=== PATIENT | female | born 1970 | race American Indian/Alaskan Native ===

== ENCOUNTER 2016-09-06 13:06 | Emergency (ER) | payer SELFPAY ==
[2016-09-06 16:39] VITALS: BP 195/111
== END 2016-09-06 13:07 | disposition left against medical advice (07) ==
LOC: ED 13:06
DX: R42 Dizziness and giddiness (principal); R53.1 Weakness; Z53.21 Procedure and treatment not carried out due to patient leaving prior to being seen by health care provider

== ENCOUNTER 2016-12-20 19:29 | Emergency (ER) | payer BC ==
[2016-12-20 20:39] LABS: Basophils % (Auto) 0.3 % (0.0-1.8); Eosinophils % (Auto) 1.4 % (0.0-4.3); Mean Corpuscular HGB Conc 29 % (30-34); Platelet Count 480 K/mm3 (140-440); Red Blood Count 4.69 M/mm3 (3.65-5.03); White Blood Count 14.2 K/mm3 (4.5-11.0)
[2016-12-20 20:43] LABS: Anion Gap 16 mmol/L; BUN/Creatinine Ratio 23.33; Blood Urea Nitrogen 14 mg/dL (7-17); Calcium 9.3 mg/dL (8.4-10.2); Carbon Dioxide 26 mmol/L (22-30); Chloride 100.6 mmol/L (98-107); Creatine Kinase 50 units/L (30-135); Glucose 89 mg/dL (65-100); Potassium 3.7 mmol/L (3.6-5.0); Sodium 139 mmol/L (137-145)
[2016-12-20 20:47] LABS: INR 0.99 (0.87-1.13)
[2016-12-20 20:48] LABS: Partial Thromboplastin Time 28.7 Sec. (24.2-36.6)
[2016-12-20 20:56] LABS: Hematocrit 28.9 % (30.3-42.9); Hemoglobin 8.3 gm/dl (10.1-14.3); Mean Corpuscular Hemoglobin 18 pg (28-32); Mean Corpuscular Volume 62 fl (79-97); Red Cell Distribution Width 20.4 % (13.2-15.2)
[2016-12-21] MEDS ORDERED: NACL ONE (02:17)
--- NOTE | 2016-12-21 03:05 | Cat Scan Report ---
FINAL REPORT PROCEDURE: CT HEAD/BRAIN WO CON TECHNIQUE: Computerized tomography of the head was performed without contrast material. HISTORY: Headache COMPARISON: No prior studies are available for comparison. FINDINGS: Skull and scalp: Normal. Paranasal sinuses: Normal. Ventricles and subarachnoid spaces: Normal. Cerebrum: No evidence of hemorrhage, acute infarction or mass . Cerebellum and brainstem: No evidence of hemorrhage, acute infarction or mass. Vasculature: Normal. Comments: None. IMPRESSION: Normal Examination
--- NOTE | 2016-12-21 03:11 | Cat Scan Report ---
FINAL REPORT PROCEDURE: CT ANGIO CHEST TECHNIQUE: Computerized tomographic angiography of the chest was performed after the IV injection of iodinated nonionic contrast including image processing. The image data was postprocessed using 2-dimensional multiplanar reformatted (MPR) and 3-dimensional (MIP and/or volume rendered) techniques. HISTORY: SOB COMPARISON: No prior studies are available for comparison. FINDINGS: Heart and pericardium: Normal. Thoracic aorta: Normal. Pulmonary vasculature: Normal. Lymph nodes: No enlarged thoracic lymph nodes. Lungs: The lungs are clear. No infiltrate, effusion or pneumothorax. The central airway is patent.. Pleural space: No effusion, thickening, or pneumothorax. Musculoskeletal structures: No significant abnormality. Upper abdominal structures: No significant abnormality. IMPRESSION: There is no evidence of pulmonary arterial emboli. The lungs are clear without infiltrate, effusion or pneumothorax.
--- NOTE | 2016-12-21 03:18 | Emergency Department Report ---
HPI - General Chief Complaint: Extremity Problem,Nontraumatic Time Seen by Provider: 12/21/16 01:10 ED Past Medical Hx - Past Medical History Previous Medical History?: Yes Hx Hypertension: Yes - Surgical History Past Surgical History?: Yes Additional Surgical History: Tubal - Social History Smoking Status: Never Smoker Substance Use Type: None - Medications Home Medications: Home Medications Medication Instructions Recorded Confirmed Last Taken Type Sulfamethoxazole/Trimethoprim 1 each PO BID #14 tablet 01/19/15 Unknown Rx [Bactrim Ds] Diazepam Tab [Valium] 5 mg PO Q8HR PRN #10 tablet 03/09/16 Unknown Rx Ibuprofen [Motrin 800 MG tab] 800 mg PO TID PRN #14 tablet 03/09/16 Unknown Rx ED Review of Systems ROS: Stated complaint: SOB, LEFT LEG PAIN Other details as noted in HPI Physical Exam - Physical Exam Vital Signs: Vital Signs 12/20/16 12/21/16 19:50 01:40 Temperature 98.8 F Pulse Rate 70 64 Respiratory 14 20 Rate Blood Pressure 154/73 145/90 [Right] O2 Sat by Pulse 100 100 Oximetry ED Course Vital Signs 12/20/16 12/21/16 19:50 01:40 Temperature 98.8 F Pulse Rate 70 64 Respiratory 14 20 Rate Blood Pressure 154/73 145/90 [Right] O2 Sat by Pulse 100 100 Oximetry ED Medical Decision Making - Lab Data Result diagrams: 12/20/16 20:02 12/20/16 20:02 Critical care attestation.: If time is entered above; I have spent that time in minutes in the direct care of this critically ill patient, excluding procedure time. ED Disposition Condition: Stable Referrals: PRIMARY CARE [Primary Care Provider] - 3-5 Days
[2016-12-21] MEDS ORDERED: LOVENOX SUB-Q ONE (04:11)
--- NOTE | 2016-12-21 04:44 | Emergency Department Report ---
HPI - General Chief Complaint: Extremity Problem,Nontraumatic Time Seen by Provider: 12/21/16 01:10 - HPI HPI: This is a 46-year-old Afro[place] female who presents to the emergency department, sent in by referral by her primary care doctor Laurence Robbins, with multiple complaints. The main issue is that the patient has a few days of left- sided leg/thigh pain. 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 On top of this issue, the patient has been having a 10 day history of intermittent left-sided headache. She will wake up with it and it will go until early afternoon and then usually will resolve after the patient uses some Aleve. She also has some shortness of breath with exertion. She denies any chest pain, fever, vision change, slurred speech, back pain and she denies any skin color change or swelling. However the patient does have a history of anemia secondary to vaginal bleeding and fibroids and required a blood transfusion back in July. She is due to have a hysterectomy by Dr. Lg Mosher. The patient recently had some blood work by Dr. Robbins that showed a hemoglobin of 8 and some thrombocytosis of almost 600. ED Past Medical Hx - Past Medical History Previous Medical History?: Yes Hx Hypertension: Yes - Surgical History Past Surgical History?: Yes Additional Surgical History: Tubal - Social History Smoking Status: Never Smoker Substance Use Type: None - Medications Home Medications: Home Medications Medication Instructions Recorded Confirmed Last Taken Type Sulfamethoxazole/Trimethoprim 1 each PO BID #14 tablet 01/19/15 Unknown Rx [Bactrim Ds] Diazepam Tab [Valium] 5 mg PO Q8HR PRN #10 tablet 03/09/16 Unknown Rx Ibuprofen [Motrin 800 MG tab] 800 mg PO TID PRN #14 tablet 03/09/16 Unknown Rx ED Review of Systems ROS: Stated complaint: SOB, LEFT LEG PAIN Other details as noted in HPI Comment: All other systems reviewed and negative Constitutional: denies: chills, fever Eyes: denies: eye pain, eye discharge, vision change ENT: denies: ear pain, throat pain Respiratory: SOB with exertion. denies: wheezing Cardiovascular: denies: chest pain, edema Gastrointestinal: denies: abdominal pain, nausea, diarrhea Genitourinary: denies: urgency, dysuria, discharge Musculoskeletal: myalgia. denies: back pain Skin: denies: rash, pruritus Neurological: headache. denies: weakness, numbness, paresthesias Physical Exam - Physical Exam Vital Signs: Vital Signs 12/20/16 12/21/16 19:50 01:40 Temperature 98.8 F Pulse Rate 70 64 Respiratory 14 20 Rate Blood Pressure 154/73 145/90 [Right] O2 Sat by Pulse 100 100 Oximetry Physical Exam: GENERAL: The patient is well-developed well-nourished. HEENT: Normocephalic. Atraumatic. Extraocular motions are intact. Patient has moist mucous membranes. Pupils equal reactive to light bilaterally. No nystagmus. NECK: Supple. Trachea is midline. CHEST/LUNGS: Clear to auscultation. No tachypnea or accessory muscle use. There is no respiratory distress noted. HEART/CARDIOVASCULAR: Regular. There is no tachycardia. There is no gallop rub or murmur. ABDOMEN: Abdomen is soft, nontender. Patient has normal bowel sounds. There is no abdominal distention. SKIN: Skin is warm and dry. NEURO: The patient is awake, alert, and oriented. The patient is cooperative. The patient has no focal neurologic deficits. The patient has normal speech. MUSCULOSKELETAL: There is some tenderness to palpation to the left anterior mid thigh and to the left calf but there is no deformity. Cap refill less than 2 seconds. There is no limitation range of motion. There is no evidence of acute injury. ED Course Vital Signs 12/20/16 12/21/16 19:50 01:40 Temperature 98.8 F Pulse Rate 70 64 Respiratory 14 20 Rate Blood Pressure 154/73 145/90 [Right] O2 Sat by Pulse 100 100 Oximetry ED Medical Decision Making - Lab Data Result diagrams: 12/20/16 20:02 12/20/16 20:02 - EKG Data -: EKG Interpreted by Me EKG shows normal: sinus rhythm, axis, intervals, QRS complexes, ST-T waves Rate: normal - EKG Data When compared to previous EKG there are: previous EKG unavailable Interpretation: normal EKG - Radiology Data Radiology results: report reviewed, image reviewed interpreted by me: Chest x-ray did not show any acute process. Heart is normal shape and size. No effusions. No pneumothorax. No signs of pneumonia seen. CT angiography of the chest does not show any pulmonary embolism, aortic dissection or any acute process. CT of the head does not show any acute process including no hemorrhage, mass, shift, diffuse edema or skull fracture. - Medical Decision Making This is a 46-year-old female who presents to the emergency department and was sent in by her PCP to rule out a left lower extremity DVT and a pulmonary embolism. The patient also complains of a 10 day history of some intermittent left-sided headache and some shortness of breath with exertion. However the patient denies any current headache or shortness of breath and has never had any chest pain. She denies any skin color change or swelling to the left leg but does have some tenderness over the thigh and calf. The patient does have a mild leukocytosis but no signs of infection. She has some anemia with hemoglobin of the eights but this is consistent with recent blood draws from her PCP and she has the known history of fibroids and heavy vaginal bleeding and is due to have a hysterectomy. Finally the patient had a slightly elevated and equivocal d-dimer. Due to the patient's history of intermittent headaches, a CT of the head was done that does not show any bleed, shift, mass or any acute process. Due to the concern for PE, a CT angiography of the chest was done that does not show any PE or any acute process. We were unable to do a venous Doppler this evening, so the patient was given a single dose of Lovenox at a therapeutic level and has been set up to have a venous Doppler done later this afternoon. If positive she will be redirected back to the emergency department. If negative she will follow with her PCP. All the labs, imaging and plan discussed with the patient and she understands and agrees. - Differential Diagnosis muscle spasm, DVT, PE, cluster headache, tension headache Critical Care Time: No Critical care attestation.: If time is entered above; I have spent that time in minutes in the direct care of this critically ill patient, excluding procedure time. ED Disposition Clinical Impression: Left leg pain, Thrombocytosis, SOB (shortness of breath) on exertion Headache Qualifiers: Headache type: unspecified Headache chronicity pattern: episodic headache Intractability: not intractable Qualified Code(s): R51 - Headache Anemia Qualifiers: Anemia type: unspecified type Qualified Code(s): D64.9 - Anemia, unspecified Disposition: DISCHARGED TO HOME OR SELFCARE Is pt being admited?: No Condition: Stable Instructions: Acute Headache (ED), Dyspnea (ED), Arthralgia (ED), Anemia (ED) Additional Instructions: Please return to the hospital when contacted for your left lower extremity Doppler ultrasound to rule out a DVT. If positive, he will be redirected to the emergency department. If negative, he should follow-up with your primary care doctor in the next few days. Return to the ER with any worsening of her symptoms or any acute distress. Referrals: PRIMARY CAREMD [Primary Care Provider] - [facility] Time of Disposition: 04:44
[2016-12-21 05:28] VITALS: BP 138/76
--- NOTE | 2016-12-21 11:30 | XRay Report ---
CHEST TWO VIEWS: 12/20/16 19:29:00 CLINICAL: Shortness of breath. COMPARISON: None FINDINGS: Normal heart and pulmonary vasculature. The lungs are normally expanded and clear. The bones and soft tissues are normal. IMPRESSION: Normal chest.
== END 2016-12-21 05:29 | disposition home or self-care (01) ==
LOC: ED 19:29
DX: M79.605 Pain in left leg (principal); D64.9 Anemia, unspecified; D47.3 Essential (hemorrhagic) thrombocythemia; R06.02 Shortness of breath; R51 Headache; I10 Essential (primary) hypertension
CPT/HCPCS: 36415; 70450; 71020; 71275; 80048; 82550; 82553; 82805; 83735; 83880; 84484; 84703; 85025; 85379; 85610; 85730; 86140; 93005; 93010; 96372; 99285; J1650; Q9967

== ENCOUNTER 2016-12-21 14:32 | Outpatient (CLI) | payer BC ==
--- NOTE | 2016-12-24 10:15 | Vascular Lab Report ---
Left Lower Extremity Venous Duplex Study: Reason for Exam: Left leg pain. Comments on the Right: A limited duplex study was done of the proximal veins of the right lower extremity. All veins visualized are freely compressible without evidence of internal echogenicity. Flow is spontaneous and phasic throughout. No evidence of acute or chronic thrombus is seen in any of the vessels visualized. Comments on the Left: All veins visualized are freely compressible without evidence of internal echogenicity. Flow is spontaneous and phasic throughout. No evidence of acute or chronic thrombus is seen in any of the vessels visualized. Impression: No evidence of acute or chronic deep venous thrombosis in the left lower extremity.
== END 2016-12-21 14:33 | disposition home or self-care (01) ==
LOC: VAS 14:32
PROVIDERS: ATTEND Emergency Medicine
DX: M79.662 Pain in left lower leg (principal)

== ENCOUNTER 2019-04-24 14:14 | Emergency (ER) | payer SELFPAY ==
[2019-04-24] MEDS ORDERED: ASPIRIN PO ONE (14:20)
--- NOTE | 2019-04-24 14:33 | Event Note ---
ED Screening Note Date of service: 04/24/19 Time: 14:31 ED Screening Note: 48 y o female presents with left arm pain and numbness radiating to chest x yesterday worsened today This initial assessment/diagnostic orders/clinical plan/treatment(s) is/are subject to change based on patients health status, clinical progression and re- assessment by fellow clinical providers in the ED. Further treatment and workup at subsequent clinical providers discretion. Patient/guardian urged not to elope from the ED as their condition may be serious if not clinically assessed and managed. Initial orders include: cp protocol
[2019-04-24 14:35] VITALS: BP 217/89
[2019-04-24 14:56] LABS: Basophils # (Auto) 0.1 K/mm3 (0.0-0.1); Basophils % (Auto) 0.5 % (0.0-1.8); Eosinophils # (Auto) 0.2 K/mm3 (0.0-0.4); Eosinophils % (Auto) 1.3 % (0.0-4.3); Hematocrit 40.6 % (30.3-42.9); Hemoglobin 13.5 gm/dl (10.1-14.3); Lymphocytes # (Auto) 2.4 K/mm3 (1.2-5.4); Lymphocytes % (Auto) 18.1 % (13.4-35.0); Mean Corpuscular HGB Conc 33 % (30-34); Mean Corpuscular Volume 88 fl (79-97); Monocytes # (Auto) 0.7 K/mm3 (0.0-0.8); Monocytes % (Auto) 5.2 % (0.0-7.3); Platelet Count 360 K/mm3 (140-440); Red Blood Count 4.62 M/mm3 (3.65-5.03); Red Cell Distribution Width 13.1 % (13.2-15.2)
[2019-04-24 15:18] LABS: BUN/Creatinine Ratio 14; Blood Urea Nitrogen 10 mg/dL (7-17); Hemolysis Index 14
--- NOTE | 2019-04-24 16:47 | XRay Report ---
CHEST PA AND LATERAL VIEWS INDICATION: Chest Pain. COMPARISON: 12/20/2016 FINDINGS: Support devices: None Heart: Normal and unchanged. Lungs/Pleura: No acute pulmonary or pleural findings. IMPRESSION: 1. No significant change. Signer Name: Chilo Verdugo MD Signed: 04/24/2019 4:43 PM Workstation Name: [id number]
== END 2019-04-24 16:41 | disposition left against medical advice (07) ==
LOC: ED 14:14
DX: M79.602 Pain in left arm (principal); R20.0 Anesthesia of skin; R07.89 Other chest pain; Z53.21 Procedure and treatment not carried out due to patient leaving prior to being seen by health care provider
CPT/HCPCS: 36415; 71046; 80048; 84484; 85025; 93005; 93010

== ENCOUNTER 2021-02-11 01:14 | Emergency (ER) | payer BC ==
[2021-02-11] MEDS ORDERED: ASPIRIN 325 MG TAB PO ONE (02:21)
[2021-02-11 02:43] LABS: Basophils % (Auto) 0.5 % (0.0-1.8); Eosinophils # (Auto) 0.3 K/mm3 (0.0-0.4); Eosinophils % (Auto) 2.4 % (0.0-4.3); Hematocrit 36.8 % (30.3-42.9); Hemoglobin 12.6 gm/dl (10.1-14.3); Lymphocytes # (Auto) 2.3 K/mm3 (1.2-5.4); Lymphocytes % (Auto) 21.4 % (13.4-35.0); Mean Corpuscular HGB Conc 34 % (30-34); Mean Corpuscular Volume 89 fl (79-97); Monocytes # (Auto) 0.5 K/mm3 (0.0-0.8); Monocytes % (Auto) 4.3 % (0.0-7.3); Platelet Count 329 K/mm3 (140-440); Red Blood Count 4.12 M/mm3 (3.65-5.03); Red Cell Distribution Width 13.1 % (13.2-15.2)
[2021-02-11 03:02] LABS: Alanine Aminotransferase 10 units/L (7-56); Blood Urea Nitrogen 9 mg/dL (7-17); Calcium 9.2 mg/dL (8.4-10.2); Hemolysis Index 6
[2021-02-11 03:04] LABS: BUN/Creatinine Ratio 15
--- NOTE | 2021-02-11 03:04 | XRay Report ---
CHEST 2 VIEWS INDICATION / CLINICAL INFORMATION: left shoulder pain. Chest pain FINDINGS: SUPPORT DEVICES: None. HEART / MEDIASTINUM: No significant abnormality. LUNGS / PLEURA: No significant pulmonary or pleural abnormality. No pneumothorax. ADDITIONAL FINDINGS: No significant additional findings. IMPRESSION: 1. No acute findings. Signer Name: Sergio Guillen MD Signed: 02/11/2021 2:59 AM Workstation Name: [id number]
[2021-02-11] MEDS ORDERED: oxyCODONE /ACETAMINOPHEN 5-325MG TAB PO ONE (06:23)
[2021-02-11 07:11] VITALS: BP 176/104
--- NOTE | 2021-02-11 07:19 | Emergency Department Report ---
ED General Adult HPI - General Chief complaint: Chest Pain Stated complaint: LT ARM/SHOULDER PAIN Time Seen by Provider: 02/11/21 06:03 Source: patient Mode of arrival: Ambulatory Limitations: No Limitations - History of Present Illness Initial comments: Patient is a 50-year-old female who has a past medical history of high blood pressure. Who presents with left arm pain that is been going on for 5 hours her arm pain is moderate nothing makes it better nothing makes it worse. She states that it is from her left shoulder and radiates down her right arm pain is a 10 out of 10 she took some [id number] pain medicine however it has not relieved the pain. Patient denies having any shortness of breath any nausea any vomiting any vaginal discharge or any fevers or chills. Severity scale (0 -10): 7 - Related Data Home Medications Medication Instructions Recorded Confirmed Last Taken lisinopriL [Zestril TAB] 10 mg PO QDAY 02/10/17 02/14/17 02/13/17 Previous Rx's Medication Instructions Recorded Last Taken Type HYDROcodone/APAP 5-325 [[place] 1 each PO Q6HR PRN #30 tablet 02/15/17 Unknown Rx 5-325 mg TAB] Ibuprofen [Motrin] 800 mg PO Q8HR PRN #30 tablet 02/15/17 Unknown Rx Acetaminophen/Codeine [Tylenol 1 tab PO Q6H PRN #12 tab 02/11/21 Unknown Rx /Codeine # 3 tab] amLODIPine 10 mg PO DAILY #30 tab 02/11/21 Unknown Rx Allergies Allergy/AdvReac Type Severity Reaction Status Date / Time No Known Allergies Allergy Unverified 02/10/17 15:55 ED Review of Systems ROS: Stated complaint: LT ARM/SHOULDER PAIN Other details as noted in HPI Constitutional: denies: chills, fever Eyes: denies: eye pain, eye discharge, vision change ENT: denies: ear pain, throat pain Respiratory: denies: cough, shortness of breath, wheezing Cardiovascular: denies: chest pain, palpitations Endocrine: no symptoms reported Gastrointestinal: denies: abdominal pain, nausea, diarrhea Genitourinary: denies: urgency, dysuria, discharge Musculoskeletal: as per HPI, myalgia. denies: back pain, joint swelling, arthralgia Skin: denies: rash, lesions Neurological: denies: headache, weakness, paresthesias Psychiatric: denies: anxiety, depression Hematological/Lymphatic: denies: easy bleeding, easy bruising ED Past Medical Hx - Past Medical History Previous Medical History?: Yes Hx Hypertension: Yes (treated x 4 mos) Hx Congestive Heart Failure: No Hx Diabetes: No Hx Renal Disease: No Hx Sickle Cell Disease: No Hx Headaches / Migraines: Yes (migraines) Hx Asthma: No Hx COPD: No Hx HIV: No - Surgical History Past Surgical History?: Yes Additional Surgical History: Tubal. Hysterectomy - Social History Smoking Status: Never Smoker - Medications Home Medications: Home Medications Medication Instructions Recorded Confirmed Last Taken Type lisinopriL [Zestril TAB] 10 mg PO QDAY 02/10/17 02/14/17 02/13/17 History HYDROcodone/APAP 5-325 [[place] 1 each PO Q6HR PRN #30 tablet 02/15/17 Unknown Rx 5-325 mg TAB] Ibuprofen [Motrin] 800 mg PO Q8HR PRN #30 tablet 02/15/17 Unknown Rx Acetaminophen/Codeine [Tylenol 1 tab PO Q6H PRN #12 tab 02/11/21 Unknown Rx /Codeine # 3 tab] amLODIPine 10 mg PO DAILY #30 tab 02/11/21 Unknown Rx ED Physical Exam - General Limitations: No Limitations General appearance: alert, in no apparent distress - Head Head exam: Present: atraumatic, normocephalic - Eye Eye exam: Present: normal appearance - ENT ENT exam: Present: mucous membranes moist - Neck Neck exam: Present: normal inspection - Respiratory Respiratory exam: Present: normal lung sounds bilaterally. Absent: respiratory distress - Cardiovascular Cardiovascular Exam: Present: regular rate, normal rhythm. Absent: systolic murmur, diastolic murmur, rubs, gallop - GI/Abdominal GI/Abdominal exam: Present: soft, normal bowel sounds - Extremities Exam Extremities exam: Present: normal inspection - Back Exam Back exam: Present: normal inspection - Neurological Exam Neurological exam: Present: alert, oriented X3 - Psychiatric Psychiatric exam: Present: normal affect, normal mood - Skin Skin exam: Present: warm, dry, intact, normal color. Absent: rash ED Course Vital Signs 02/11/21 02/11/21 02/11/21 01:55 06:43 06:45 Temperature 98.6 F Pulse Rate 79 81 76 Respiratory 18 22 18 Rate Blood Pressure 225/105 187/96 O2 Sat by Pulse 98 95 Oximetry 02/11/21 07:00 Temperature Pulse Rate 75 Respiratory 19 Rate Blood Pressure 176/104 O2 Sat by Pulse 96 Oximetry ED Medical Decision Making - Lab Data Result diagrams: 02/11/21 02:23 02/11/21 02:23 Lab Results 02/11/21 02/11/21 02/11/21 Range/Units 02:23 02:23 05:26 WBC 10.8 (4.5-11.0) K/mm3 RBC 4.12 (3.65-5.03) M/mm3 Hgb 12.6 (10.1-14.3) gm/dl Hct 36.8 (30.3-42.9) % MCV 89 (79-97) fl MCH 31 (28-32) pg MCHC 34 (30-34) % RDW 13.1 L (13.2-15.2) % Plt Count 329 (140-440) K/mm3 Lymph % (Auto) 21.4 (13.4-35.0) % [place] % (Auto) 4.3 (0.0-7.3) % Eos % (Auto) 2.4 (0.0-4.3) % Baso % (Auto) 0.5 (0.0-1.8) % Lymph # (Auto) 2.3 (1.2-5.4) K/mm3 [place] # (Auto) 0.5 (0.0-0.8) K/mm3 Eos # (Auto) 0.3 (0.0-0.4) K/mm3 Baso # (Auto) 0.0 (0.0-0.1) K/mm3 Seg Neutrophils % 71.4 H (40.0-70.0) % Seg Neutrophils # 7.7 (1.8-7.7) K/mm3 Sodium 143 (137-145) mmol/L Potassium 3.7 (3.6-5.0) mmol/L Chloride 103.8 (98-107) mmol/L Carbon Dioxide 30 (22-30) mmol/L Anion Gap 13 mmol/L BUN 9 (7-17) mg/dL Creatinine 0.6 (0.6-1.2) mg/dL Estimated GFR > 60 ml/min BUN/Creatinine Ratio 15 % Glucose 109 H (65-100) mg/dL Calcium 9.2 (8.4-10.2) mg/dL Total Bilirubin 0.20 (0.1-1.2) mg/dL AST 13 (5-40) units/L ALT 10 (7-56) units/L Alkaline Phosphatase 106 (35-129) units/L Troponin T < 0.010 < 0.010 (0.00-0.029) ng/mL Total Protein 6.7 (6.3-8.2) g/dL Albumin 4.0 (3.9-5) g/dL Albumin/Globulin Ratio 1.5 % - EKG Data -: EKG Interpreted by Me - EKG Data 02/11/21 07:22 EKG time 2: 04 rate seventy-five at topical atrial rhythm no ST segment elevation no T wave inversion impression normal EKG - Radiology Data Radiology results: report reviewed, image reviewed Chest x-ray: Shows no acute cardiopulmonary disease - Medical Decision Making Chief medical diagnosis: Left shoulder myalgia Differential medical diagnosis: Non-STEMI, arrhythmia, hypertensive urgency I will give patient oral pain medicine I will get chest x-ray blood work EKG two sets of troponin and I will reevaluate the patient. Patient's ED work-up is unremarkable I will discharge patient home with oral pain medicine and follow-up with her primary care doctor. Additional verbal discharge instructions were given. Critical care attestation.: If time is entered above; I have spent that time in minutes in the direct care of this critically ill patient, excluding procedure time. ED Disposition Clinical Impression: Hypertensive urgency Left shoulder pain Qualifiers: Chronicity: acute Qualified Code(s): M25.512 - Pain in left shoulder Disposition: DC-01 TO HOME OR SELFCARE Is pt being admited?: No Does the pt Need Aspirin: No Condition: Stable Instructions: Shoulder Pain, Joint Pain Prescriptions: amLODIPine 10 mg PO DAILY #30 tab Acetaminophen/Codeine [Tylenol /Codeine # 3 tab] 1 tab PO Q6H PRN #12 tab PRN Reason: Pain , Severe (7-10)
--- NOTE | 2021-02-14 14:21 | Electrocardiograph Report ---
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
== END 2021-02-11 08:00 | disposition home or self-care (01) ==
LOC: ED 01:14
DX: I16.0 Hypertensive urgency (principal); M25.512 Pain in left shoulder; G43.909 Migraine, unspecified, not intractable, without status migrainosus; I10 Essential (primary) hypertension; Z79.899 Other long term (current) drug therapy; Z90.710 Acquired absence of both cervix and uterus; Z98.51 Tubal ligation status
CPT/HCPCS: 36415; 71046; 80053; 84484; 85025; 93005